=== PATIENT | female | born 1985 | race Caucasian/White ===

== ENCOUNTER 2017-06-14 12:22 | Emergency (ER) | payer OTHER, SELFPAY ==
[2017-06-14 12:23] VITALS: BP 126/76; PULSE 87; RESP 16; TEMP 36.4; O2SAT 100; BMI 24.4
--- NOTE | 2017-06-14 12:55 | US_ITS ---
STUDY: FIRST TRIMESTER OBSTETRICAL ULTRASOUND REASON FOR EXAM: Female, 32 years old. Bleeding. LMP: Otis 6 2018. TECHNIQUE: Transvaginal PRIOR ULTRASOUND: None. FINDINGS: There is no demonstrated intrauterine gestational sac. There is no demonstrated yolk sac. The placenta is non-visualized. There is no demonstrated embryo ( pole). The uterus measures 8.1 cm x 5.1 cm x 4.0 cm. There is no demonstrated uterine fibroid. The cervix is closed. The right ovary measures 2.2 cm x 2.3 cm x 1.3 cm. There is no right ovarian cyst. There is no visualized right adnexal mass or complex lesion. The left ovary measures 3.6 cm x 2.0 cm x 2.0 cm. There is a 1.9 cm x 1.4 cm x 1.5 cm complex cyst in the left ovary. This may represent an hemorrhagic corpus luteum cyst. There is no visualized left adnexal mass or complex lesion. There is no fluid in the cul de sac. US/Transvaginal w/Preg US IMPRESSION: No intrauterine gestational sac is seen. 1.9 cm x 1.4 cm x 1.5 cm septated cyst in the left ovary as described. Serial beta hCG correlation is recommended. Electronically Signed: Humble Patel MD at 14:47 EST Tel [phone], Service support ,
[2017-06-14 14:42] VITALS: BP 108/71; PULSE 89; RESP 16; O2SAT 99
[2017-06-14 15:53] LABS: hCG Titer Quant., Serum 21 mIU/mL (<9 non-preg)
[2017-06-14 16:10] VITALS: BP 111/74; PULSE 84; RESP 16; O2SAT 100
--- NOTE | 2017-06-14 16:31 | ED.VISSUMM ---
- ER Visit Summary Date of Service: 06/14/17 Chief Complaint: Vaginal bleeding with cramping pelvic pain that started this morning History of Present Illness: The patient is a 32 F Ab0 who presents with vaginal bleeding that started this morning. She states she is used 4 pads. She has no orthostatic symptoms. She has O+ blood. She states she is 5-6 weeks . She does complain of nausea without vomiting or diarrhea. She does complain of frequency without urgency, hematuria or dysuria. She does complain of low central back pain. She denies bruising easily. Physical Examination: Vital signs are unremarkable. HEENT exam is unremarkable. Heart is regular without murmur, gallop or rub. S1 and S2 are normal. Lungs are clear to auscultation with good movement of air bilaterally. Abdomen is remarkable for a superficial burn to her abdomen right lower quadrant and tenderness low pelvic region bilaterally. There is no umbilical, inguinal hernia. There is no inguinal lymphadenopathy. External genitalia is normal. Vaginal cervical mucosa appear normal. There is a partially 5 cc of old blood in the vaginal vault. Also appears closed. Bimanual exam reveals slightly enlarged uterus that is tender. There is no adnexal masses or tenderness appreciated. There is no cervical motion tenderness. The external offices closed. Test Results: Transvaginal exam was obtained which revealed an empty uterus. A serum quantitative hCG was obtained and is only 21. Emergency Department Course and Treatment: Since patient had a positive pricey test and is seen by gynecology repeat hCG was not obtained. Transvaginal ultrasound was obtained to evaluate viability of and to evaluate for/rule out ectopic . There is a septated left ovary noted. There is no products of conception noted in uterus. Because the ultrasound revealed an empty uterus a quantitative hCG was obtained. Dr. Ahumada was paged. Spoke with Mel Garcia her nurse practitioner. She would like a repeat hCG in 48 hours. Presume patient had a spontaneous complete AB Treatment Plan: Repeat quantitative hCG in 48 hours and follow up with Dr. Ahumada Disposition: Discharged to home Impression: First trimester vaginal bleeding suspect complete spontaneous AB This note was generated with Mobile [employer] software. It may contain incorrect words, spelling, and punctuation that were not noted in review of the chart prior to signing ED Disposition - Plan for ED Patient: Disposition: Home or Assisted Living Chief Complaint: Vag Bld, Preg Instructions: ED Miscarriage Poss Referrals: Armand Nunez MD [Primary Care Provider] - Micheline Ahumada MD [STAFF PHYSICIAN] - 3-5 Days Additional Instructions: You will need to go to the outpatient lab to have a repeat quantitative hCG on June 16
[2017-06-14 16:49] VITALS: BP 111/74; PULSE 84; RESP 16; O2SAT 100
== END 2017-06-14 16:50 | disposition home or self-care (01) ==
PROVIDERS: Emergency Provider Emergency Medicine; Family Provider Family Medicine; PCP Family Medicine
DX: O46.91 Antepartum hemorrhage, unspecified, first trimester (principal); Z3A.01 Less than 8 weeks gestation of pregnancy
CPT/HCPCS: 36415; 76817; 84702; 99282

== ENCOUNTER → 2017-06-16 12:48 | Outpatient (CLI) | payer OTHER, SELFPAY ==
[2017-06-16 14:19] LABS: hCG Titer Quant., Serum 8 mIU/mL (<9 non-preg)
== END ==
PROVIDERS: Family Provider Family Medicine; PCP Family Medicine; Visit Provider Obstetrics & Gynecology
DX: O46.91 Antepartum hemorrhage, unspecified, first trimester (principal); Z3A.00 Weeks of gestation of pregnancy not specified
CPT/HCPCS: 36415; 84702

== ENCOUNTER 2020-02-16 10:31 | Emergency (ER) | payer OTHER, SELFPAY ==
[2020-02-16 10:32] VITALS: BP 133/80; PULSE 75; RESP 18; TEMP 35.8; O2SAT 100; BMI 22.1
--- NOTE | 2020-02-16 11:29 | ED.VIS.EYE ---
History of Present Illness Chief Complaint: Eye Problem Informant: Patient Location: Right Eye Onset: Yesterday Context: Gradual Onset Timing: Continuous Associated Symptoms - Eyes: Pain, Photophobia, Redness Visual Changes: right: Blurred vision History of injury: No Visual correction: Glasses, Corrective contact lenses Narrative: Patient is a 35-year-old female presenting with 2 days of worsening pain in her right eye. She states she woke up yesterday to start having pain in her right eye. Throughout the day it started to get worse. Her coworkers noticed that her right pupil looked big. She has had worsening photophobia and she feels like her depth perception has been off. Tonight she flushed out her I took out her contacts with no improvement. She does not have a foreign body sensation in her eye. She took Advil with no relief of her symptoms. She was not really able to sleep last night and came in because the pain was worsening. She denies any tearing of her eye. She states it feels like an aching and tenderness behind her eye. She now has an associated headache. She feels that she cant really see out of her eye at this time. Patient states she has amblyopia of her left eye and is told that her right eye is her good eye. She follows with her solar photovoltaic electrician, Dr. Carlin and just had a normal evaluation 2 weeks ago. Prior similar symptoms: No Past Medical History - Allergies and Home Meds Allergies/Adverse Reactions: Allergies latex Allergy (Verified 02/16/20 10:35) Mucosal lesions tramadol Allergy (Verified 02/16/20 10:35) Itching Primary Care Physician: Parth Caro MD [STAFF PHYSICIAN] - Surgical History: noncontributory Lives: Spouse/ Significant Other Smoking Status: Never smoker Review of Systems General: Denies: Chills, Fever, Sweats Eyes: Reports: Blurred vision - right, - - photophobia. Denies: Visual changes - bilaterally, Diplopia ENT: Denies: Bilateral ear pain, Rhinorrhea, Sore throat Cardiovascular: Denies: Chest pain, Palpitations Respiratory: Denies: Dyspnea, Cough, Dyspnea on exertion Gastrointestinal: Denies: Abdominal pain, Nausea, Vomiting, Diarrhea, Melena, Hematochezia Genitourinary: Denies: Dysuria, Hematuria, Frequency Musculoskeletal: Denies: Back pain, Extremity Pain Skin: Denies: Rash, Wounds Neurological: Reports: Headache. Denies: Weakness, Numbness Physical Exam Visual Acuity: Uncorrected Eyelid: Normal inspection Right Conjunctiva/Sclera: Diffuse focal injection Left Conjunctiva/Sclera: Normal inspection Right Cornea: Normal inspection, No foreign body, Tetracaine instilled, Fluorescein dye uptake Left Cornea: Normal inspection Extraocular Motion: Normal exam, No nystagmus Right pupil size in mm: 5 Left pupil size in mm: 6 Anterior chamber: - - Difficult to evaluate as patient is not tolerating any light on her eye Right intraocular pressure: 21 Left intraocular pressure: 25 Vital Signs/Narrative: Vital Signs Temp Pulse Resp BP Pulse Ox 02/16/20 10:32 96.4 F L 75 18 133/80 H 100 Right pupil reactive but sluggish. Inital Vital Signs reviewed: Yes Diagnostic/Tx/Re-eval - Treatment and Re-Evaluation Tetracaine: both eyes Antibiotic: right eye - Medical Decision Making Patient is evaluated for worsening right eye pain. She has associated vision changes. On initial exam patient is having significant pain that does not seem to really be improved with tetracaine. Her pressures are normal however. Patient is a contact lens user. On initial slit-lamp exam I do not see any fluorescein dye uptake however patient was tolerated very poorly secondary to photophobia. Given her significant symptoms with lack of an obvious source I did talk to her solar photovoltaic electrician, Dr. Hargrove, who suspects is a contact lens wearer she does have an abrasion somewhere. He recommends putting her on ciprofloxacin drops every other hour for the next day and he will see her in the office tomorrow. He also recommends alternating ibuprofen and Tylenol for pain. She her symptoms significantly worsen the office today and he will arrange further care. Given that she is having significant symptoms she is given a dose of IV morphine and she now states her pain is worse when she looks down and to the right so I will obtain a CT of the face to rule out any preseptal cellulitis or other acute process of the extraocular eye muscles. Patient then goes on to state that she now really feels that there is a foreign body in her eye and her looks underneath her eyelid and thinks he sees something. I go back in and reanesthetize her eye and flip her eyelid. I do not see any foreign body however at this time I will repeat fluorescein slit lamp exam. Patient tolerates it better and now there does appear to be slight corneal abrasion over her central pupil. Patient does have improvement of her symptoms with the tetracaine now which is inconsistent and would like to cancel the CT of her eye. I think this is reasonable since there now appears to be a source of the pain. Patient will still be discharged home with NSAIDs and a short course of [place] for pain control as well as ophthalmic antibiotics. Patient is counseled on signs and symptoms requiring return to the emergency room. Patient verbalizes agreement and understand this plan. Patient discharged home in stable and improved condition. ED Disposition - Plan for ED Patient: Disposition: Home or Assisted Living Diagnosis: Acute right eye pain, Right corneal abrasion Instructions: ED Corneal Abrasion Prescriptions: Ibuprofen [Motrin] 600 mg PO Q6H PRN PRN #20 tab PRN Reason: Pain Score 1-10/10 Transmission Status: Received by YUNIOR GEORGE RD Hydrocodone Bitart/Apap 5-325 [[place] 5MG-325MG] 1 tab PO Q4H PRN PRN 2 Days #8 tab PRN Reason: Pain Transmission Status: Received by YUNIOR GEORGE RD Referrals: Parth Caro MD [STAFF PHYSICIAN] - Additional Instructions: Call eye doctor tomorrow to arrange follow-up for the same day. If you have significantly worsening symptoms tonight or later today please call the office and asked to speak to the eye doctor at [facility] you are seen in the ER today. Apply the antibiotic eyedrop 1 to 2 drops every other hour today to the right eye. Do not put contact lenses back in your eye.
--- NOTE | 2020-02-16 11:33 | ED.RN ---
unable to do visual acuity as patient is unable to keep eyes open due to pain.
[2020-02-16] MEDS: Ketorolac 15 MG/ML Vial IV (12:09)
[2020-02-16] MEDS: Morphine 4 MG/ML Syringe IV (12:10)
[2020-02-16 13:00] VITALS: BP 114/62; PULSE 80; RESP 18; O2SAT 99
[2020-02-16 13:32] LABS: Internal QC Validated? YES +Cl - CLEAR BKGD; Pregnancy, Urine Negative Negative
[2020-02-16] MEDS: Tetracaine 0.5% Ophthalmic Bottle OPHTHALMIC (13:45)
[2020-02-16] MEDS: Ciprofloxacin 0.3% 2.5ml Bottle 2 DRP RIGHT EYE (13:45)
[2020-02-16] MEDS: HYDROcodone Bitartrate/Apap 5/325 Tablet PO (14:02)
== END 2020-02-16 14:08 | disposition home or self-care (01) ==
PROVIDERS: Emergency Provider Emergency Medicine; PCP Family Medicine
DX: S05.01XA Injury of conjunctiva and corneal abrasion without foreign body, right eye, initial encounter (principal); X58.XXXA Exposure to other specified factors, initial encounter; Y93.89 Activity, other specified; Y92.89 Other specified places as the place of occurrence of the external cause; Y99.8 Other external cause status
CPT/HCPCS: 81025; 96374; 96375; 99283; A4216

== ENCOUNTER → 2020-07-16 08:56 | Outpatient (CLI) | payer OTHER, SELFPAY ==
--- NOTE | 2020-07-16 18:17 | PCM.TILTTABL ---
- Staff Staff: Isha Garcia - Summary Pre Test Resting HR: 72 Pre Test Resting BP: 112/80 Minimum Test HR: 52 Maximum Test HR: 151 Minimum Test BP: 0/0 Maximum Test BP: 120/60 Physician Tilt Table Report - Patient's Physicians Primary Care Physician: Armand Nunez Indications/Diagnosis: Recurrent syncope. 35-year-old lady with a history of palpitations and presyncopal episodes with racing heart and lightheadedness associated with passing out spells when she changes position from sitting to standing position. Procedure Comments: The patient was brought to the noninvasive lab in the postabsorptive nonsedated state. The initial EKG demonstrated normal sinus rhythm with a rate of 70 bpm blood pressure was 112/80 mmHg. The patient was then positioned in the 70 degree head upright tilt position for 20 minutes. Continuous EKG monitoring and heart rate was performed. Blood pressures were also recorded. Patient had symptoms of numbness and tingling but no significant abnormalities were noted. The patient was then placed back in the recumbent position and administered 0.4 mg of sublingual nitroglycerin. Head upright tilt position was then assumed. The patient was then noted to increase her heart rate to approximately 151 bpm which appeared consistent with sinus tachycardia. The resting blood pressure at that time was noted to be 119/79 mmHg. The patient subsequently after 3 minutes in the upright tilt position started to become bradycardic with a pulse going down to approximately 45 bpm and consistent with sinus bradycardia. Patient became clammy and unresponsive with mild seizure-like activity. The patient was then placed back in the recumbent position with improvement in her heart rate back to her baseline in the mid 60s. The patient recovered well. Summary: The above is suggestive of a mixed picture with likely postural orthostatic tachycardic syndrome triggering off a vagal response.
[2020-07-16 18:23] VITALS: BP 0/0; BP 112/80; BP 120/60
== END ==
PROVIDERS: PCP Family Medicine; Referring Provider Internal Medicine Cardiovascular Disease; Visit Provider Internal Medicine Cardiovascular Disease
DX: I95.1 Orthostatic hypotension (principal)
CPT/HCPCS: 93660; J7040; A4216

== ENCOUNTER 2021-05-17 15:45 | Outpatient (CLI) | payer OTHER, SELFPAY ==
[2021-05-17 16:49] LABS: NATERA MAILED SPECIMEN
== END 2021-05-17 23:59 | disposition short-term general hospital (02) ==
LOC: PAVLAB 15:46
PROVIDERS: PCP Family Medicine; Referring Provider Obstetrics & Gynecology; Visit Provider Obstetrics & Gynecology
DX: Z80.3 Family history of malignant neoplasm of breast (principal)
CPT/HCPCS: 36415

== ENCOUNTER 2021-05-21 09:02 | Outpatient (CLI) | payer OTHER, SELFPAY ==
--- NOTE | 2021-05-21 09:05 | US_ITS ---
STUDY: ULTRASOUND BREAST - LEFT REASON FOR EXAM: Female, 36 years old. Pain in the left breast. Bilateral breast implants. TECHNIQUE: Axial and longitudinal images of the LEFT breast were performed with a high resolution ultrasound transducer. # OF IMAGES: 27 COMPARISON: Comparison is made with prior mammogram done earlier in the day. FINDINGS: LEFT Breast: The lateral half of the left breast was examined by ultrasound. No sonographic abnormality is seen. There is evidence of an underlying breast implant. US/Breast Limited Unilateral IMPRESSION: No sonographic abnormality is seen. ASSESSMENT CATEGORY: BIRADS Category 2: Benign. A letter regarding these results will be sent to the patient by the facility within 30 days. Electronically Signed: Humble Patel MD at 13:35 EST , Service support ,
--- NOTE | 2021-05-21 09:09 | BI_ITS ---
MAMMOGRAPHY - BILATERAL DIAGNOSTIC REASON FOR EXAM: Female, 36 years old. Left lateral breast discomfort for 2 months. 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 PERTINENT HISTORY: Aunt with breast cancer. TECHNIQUE: Digital bilateral breast michaela (3D mammographic acquisition) in the CC and MLO projections. 2-D mediolateral oblique (MLO) and craniocaudad (CC) views of both breasts were obtained. CAD: Full Field Digital Mammography with Computer Added Detection was performed. COMPARISON: Comparison is made with prior outside examination of 07/04/2011. FINDINGS: Breast Composition: The breasts are heterogeneously dense, which may obscure small masses. There are no dominant masses or suspicious calcifications. Since prior study, the patient underwent bilateral breast implants. No other significant abnormalities are identified. BI/DIAG MAMM W/CAD, BILAT IMPRESSION: Negative diagnostic mammogram. With the patient''s history of a palpable lump in the left lateral breast, correlation with ultrasound is recommended. ASSESSMENT CATEGORY: BIRADS Category 0: Incomplete. Need additional imaging evaluation. A letter regarding these results will be sent to the patient by the facility within 30 days. Approximately 10% of breast cancers are not detected by mammography. A normal mammogram should not delay biopsy of a clinically suspicious abnormality. Electronically Signed: Humble Patel MD at 11:38 EST , Service support ,
== END 2021-05-21 23:59 | disposition short-term general hospital (02) ==
LOC: OPBI 09:03
PROVIDERS: PCP Family Medicine; Referring Provider Obstetrics & Gynecology; Visit Provider Obstetrics & Gynecology
DX: N64.4 Mastodynia (principal); Z98.82 Breast implant status
CPT/HCPCS: 76642; 77062; 77066; G0279

== ENCOUNTER 2021-09-25 19:43 | Emergency (ER) | payer OTHER, SELFPAY ==
[2021-09-25 19:45] VITALS: BP 128/75; PULSE 101; RESP 16; TEMP 36.2; O2SAT 99; BMI 21.7
--- NOTE | 2021-09-25 20:25 | EDS_ITS ---
HPI HPI - GI History of Present Illness Chief Complaint: Abd Pain Narrative Narrative: 36-year-old female presenting with epigastric pain. She states been ongoing for about 3 days. It was worse today. Eating does not seem to make it worse or better. Patient states has been eating a bland diet. She has nausea without vomiting. No fever or chills. Patient has no diarrhea or constipation. Denies urinary complaints. Patient states that her friend who is a nurse practitioner gave her some Pepcid earlier which did not help. Patient has taken nothing for pain prior to arrival. Patient is not a drinker or smoker. [facility] Medical History Ganglion cyst Genetic testing Hypothyroid Seasonal depression Home Medications levothyroxine 50 mcg PO DAILY 11/28/13 [History Last Taken 08/28/15 08:00] multivitamin [Daily Multiple] 1 tab PO DAILY 08/27/15 [History Last Taken Unknown] ibuprofen 600 mg PO Q6H PRN PRN #20 tab 02/16/20 [Rx Last Taken Unknown] bupropion HCl 300 mg 24 hr tablet, extended release 300 mg PO QAM 05/17/21 [History Last Taken Unknown] alprazolam 1 mg PO TID PRN 09/25/21 [History Last Taken Unknown] omeprazole 20 mg PO DAILY #30 tab 09/25/21 [Rx Last Taken Unknown] ondansetron 4 mg PO Q8H PRN #14 tab 09/25/21 [Rx Last Taken Unknown] phentermine-topiramate [Qsymia] 1 cap PO DAILY 09/25/21 [History Last Taken Unknown] rizatriptan 10 mg PO X1 PRN 09/25/21 [History Last Taken Unknown] sucralfate [Carafate] 1 g PO BID PRN #500 ml 09/25/21 [Rx Last Taken Unknown] Allergy/AdvReac Type Severity Reaction Status Date / Time latex Allergy Mucosal Verified 09/25/21 19:46 lesions tramadol Allergy Itching Verified 09/25/21 19:46 Family History (Updated 05/17/21 @ 15:47 by Lacie Trejo) Unknown Breast cancer, Onset Age: 48 Aunt Breast cancer Grandmother Ovarian cancer Surgical History delivery delivered H/O hernia repair S/P ACL surgery Status post breast lumpectomy Social History (Updated 05/17/21 @ 15:48 by Lacie Trejo) Smoking Status: Never smoker alcohol intake: never substance use type: does not use caffeine: Yes seatbelt use: always do you feel safe at home: Yes additional social history: [employer] ROS ROS ED Constitutional Constitutional ED: Denies chills or fever(s) ENT ENT ED: Denies rhinorrhea or sore throat Cardiovascular Cardiovascular: Denies chest pain or palpitations Respiratory/Chest Respiratory/Chest: Denies cough or dyspnea Gastrointestinal Gastrointestinal: Reports abdominal pain and nausea; Denies constipation, diarrhea or vomiting Genitourinary Genitourinary ED: Denies dysuria or hematuria Musculoskeletal Musculoskeletal: Denies arthralgias or myalgias Integumentary Denies rash Neurologic Neurologic: Denies headache(s) or paresthesias Psychiatric Psychiatric: Denies anxiety or depression Endocrine Endocrinology: Denies polydipsia or polyuria EXAM Physical Exam Const Vital Signs: 09/25/21 19:45 Temperature 97.2 F L Temperature Source Temporal Pulse Rate 101 H Respiratory Rate 16 Blood Pressure 128/75 H Blood Pressure Mean 92 Pulse Ox 99 Oxygen Delivery Method Room Air Positive well nourished General Appearance ED: NAD; Negative for pallor HEENT normocephalic and atraumatic Eyes PERRL and EOMs intact bilaterally General Eye ED: Negative for pale conjunctiva or scleral icterus Neck no lymphadenopathy and supple Resp normal respiratory effort and clear to auscultation bilaterally Cardio regular rate and regular rhythm GI Palpation: soft and tender epigastric Neuro CN's II-XII intact bilaterally and moves all extremities Sensorium / Orientation: alert, oriented to person, oriented to place and oriented to time Psych mental status grossly normal Skin General Skin Exam: Negative for jaundice or pallor Lesions: no lesions Rashes: no rashes MDM MDM MDM Narrative Medical decision making narrative: Given morphine and Zofran for pain and nausea respectively. I obtained lab work and gave her IV fluids. CBC is in the CMP are unremarkable. Lipase normal. Urinalysis negative for infection. Patient states he feels somewhat better after being treated but still having some epigastric pain. She was given a GI cocktail with some relief. I suspect this is gastritis versus gastric ulcer. I do not believe she needs a CAT scan at this time. Patient will be started on a PPI, Carafate, Zofran. She states she can follow-up with her primary care physician. Patient given return precautions. Impression: 1. Nausea 2. Epigastric pain Lab Data Attestation: I reviewed the patient's lab results. Labs: Laboratory Results - last 24 hr 09/25/21 09/25/21 09/25/21 20:35 20:35 22:31 WBC 8.0 RBC 3.93 L Hgb 12.8 Hct 36.8 L MCV 93.6 MCH 32.6 H MCHC 34.8 RDW Std Deviation 42.8 RDW Coeff of Alessandra 12.2 Plt Count 264 MPV 10.4 Immature Gran % (Auto) 0.400 Neut % (Auto) 69.8 Lymph % (Auto) 23.7 [place] % (Auto) 5.6 Eos % (Auto) 0.4 Baso % (Auto) 0.1 Absolute Neuts (auto) 5.6 Absolute Lymphs (auto) 1.89 Nucleated RBC % 0 Sodium 138 Potassium 3.3 L Chloride 107 Carbon Dioxide 25.0 Anion Gap 6 BUN 12 Creatinine 0.87 Estim Creat Clear Calc 103.41 Est GFR (MDRD) Af Amer 95 Est GFR (MDRD) Non-Af 78 BUN/Creatinine Ratio 13.8 Glucose 93 Calcium 8.8 Total Bilirubin 0.80 AST 7 L ALT 14 Alkaline Phosphatase 34 L Total Protein 6.9 Albumin 3.9 Globulin 3.0 Albumin/Globulin Ratio 1.3 Lipase 56 L Urine Color Yellow Urine Clarity Sl. Cloudy Urine pH 7.0 Ur Specific [place] 1.005 Urine Protein Negative Urine Glucose (UA) Normal Urine Ketones 5 H Urine Occult Blood Negative Urine Nitrite Negative Urine Bilirubin Negative Urine Urobilinogen Normal Ur Leukocyte Esterase Negative Urine RBC 0 SEEN Urine WBC 0 SEEN Ur Squamous Epith Cells 0-5 SEEN Amorphous Sediment 1+ PHOS Urine Bacteria 0 SEEN Urine Mucus 0 SEEN Discharge Plan Triage Chief Complaint: Abd Pain ED Provider: Tima Moreno Dx/Rx/DC Orders Instructions: ED PEPTIC ULCER vs GASTRITIS Prescriptions: New omeprazole 20 mg tablet,disintegrat, delay rel 20 mg PO DAILY Qty: 30 RF: 0 sucralfate [Carafate] 100 mg/mL suspension 1 g PO BID PRN (Reason: epigastric pain) Qty: 500 RF: 0 ondansetron 4 mg tablet,disintegrating 4 mg PO Q8H PRN (Reason: nausea and vomiting) Qty: 14 RF: 0 No Action bupropion HCl [Wellbutrin XL] 300 mg tablet extended release 24 hr 300 mg PO QAM RF: 0 levothyroxine 100 MCG tablet 50 mcg PO DAILY RF: 0 multivitamin [Daily Multiple] 1 EACH tablet 1 tab PO DAILY RF: 0 ibuprofen 600 MG tablet 600 mg PO Q6H PRN PRN (Reason: Pain Score 1-10/10) Qty: 20 RF: 0 alprazolam 1 mg tablet 1 mg PO TID PRN (Reason: Anxiety) RF: 0 rizatriptan 10 mg tablet,disintegrating 10 mg PO X1 PRN (Reason: Migraine Headache) RF: 0 Qsymia 7.5-46 mg capsule, ER multiphase 24 hr 1 cap PO DAILY RF: 0 Primary Care Provider: Armand Nunez Referrals: Armand Nunez MD [Primary Care Provider] - Disposition Disposition: Home, Self Care Discharge Date/Time: 09/25/21 23:48
[2021-09-25 20:52] LABS: Absolute Lymphocyte Count 1.89 X10^3/uL (0.83-4.51); Absolute Neutrophil Count 5.6 X10^3/uL (2.0-7.7); Basophil# 0.01 X10^3/uL; Basophil% 0.1 % (0-1); Eosinophil# 0.03 X10^3/uL; Eosinophils% 0.4 % (0-5); Hematocrit 36.8 % (37-47); Hemoglobin 12.8 g/dL (12.0-15.0); Lymphocyte # 1.89 X10^3/ul (0.83-4.51); Lymphocyte % 23.7 % (19-41); Mean Corp Hgb Conc 34.8 g/dL (32-36); Mean Corpuscular Hgb 32.6 pg (27.0-32.0); Mean Corpuscular Volume 93.6 fL (81-99); Mean Platelet Vol. 10.4 fl (6.2-12.0); Monocyte# 0.45 X10^3/uL; Monocyte% 5.6 % (0-10); NRBC Flagged by Analyzer 0 % (0-5); Neutrophil # 5.58 X10^3/uL (2.7-7.7); Neutrophil % 69.8 % (47-70); Platelet Count 264 K/mm3 (150-450); RBC Distribution Width CV 12.2 % (11.6-14.6); RBC Distribution Width SD 42.8 fl (35.1-43.9); Red Blood Count 3.93 M/mm3 (4.2-5.4)
[2021-09-25 21:07] LABS: ALB/GLOB Ratio 1.3 RATIO (0.9-2.4); AST(SGOT) 7 U/L (15-37); Alanine Aminotransfer ALT/SGPT 14 U/L (13-56); Albumin, Serum 3.9 g/dL (3.2-5.0); Alkaline Phosphatase 34 U/L (45-117); Anion Gap 6 (5-15); BUN 12 mg/dL (7-18); BUN/Creat Ratio 13.8 RATIO (10-20); Calcium,Total 8.8 mg/dL (8.5-10.1); Chloride 107 mmol/L (98-107); Creatinine, Serum 0.87 mg/dL (0.55-1.02); EST Glomerular Filtration Rate 78 mL/min (>60); Est Glom Filt Rate - Afr Amer 95 mL/min (>60); Estimated Creatinine Clearance 103.41 ml/min; Glucose 93 mg/dL (74-106); Lipase 56 U/L (73-393); Potassium 3.3 mmol/L (3.5-5.1); Protein, Total 6.9 g/dL (6.4-8.2); Sodium Level 138 mmol/L (136-145)
[2021-09-25] MEDS: 0.9% Normal Saline 1,000 ML 1000 ML IV (21:26)
[2021-09-25] MEDS: Ondansetron 4 MG/2 ML Vial IV (21:26)
[2021-09-25] MEDS: Morphine 4 MG/ML Syringe IV (21:27)
[2021-09-25 22:40] LABS: Bacteria 0 SEEN /hpf (None Seen); Mucous, Urine 0 SEEN /hpf (<or=2+); Red Blood Cells-Urine 0 SEEN /hpf (0-5); White Blood Cells 0 SEEN /hpf (0-5)
[2021-09-25 22:49] LABS: Color, Urine Yellow (Yellow); Glucose, Dipstick Normal (Normal); Ketone-Dipstick 5 mg/dl (Negative); Leukocyte Esterase-Dipstick Negative /ul (Negative); Nitrite-Dipstick Negative (Negative); Occult Blood-Urine Negative /ul (Negative); Protein-Dipstick Negative (Negative); Specific Gravity, Urine 1.005 (1.002-1.030); Urine Bilirubin Dipstick Negative (Negative); Urine Clarity Sl. Cloudy (Clear); Urine Urobilinogen Normal (Normal)
[2021-09-25] MEDS: Mag Hydrox/Al Hydrox/Simeth 30 ML UDC PO (23:01)
[2021-09-25 23:05] LABS: Amorphous Sediment 1+ PHOS; Squamous Epithelial Cells - UA 0-5 SEEN /hpf (5-10)
== END 2021-09-25 23:48 | disposition home or self-care (01) ==
PROVIDERS: Emergency Provider Student in an Organized Health Care Education/Training Program; PCP Family Medicine; Visit Provider Student in an Organized Health Care Education/Training Program
DX: R10.13 Epigastric pain (principal); R11.0 Nausea; E03.9 Hypothyroidism, unspecified
CPT/HCPCS: 80053; 81001; 83690; 85025; 99283; J7030; J2405

== ENCOUNTER → 2021-10-18 | Outpatient (CLI) | payer OTHER, SELFPAY ==
[2021-10-21 14:55] LABS: HPV APTIMA, High Risk Negative (Negative)
== END | disposition home or self-care (01) ==
LOC: LABSPEC 10-19 08:37
PROVIDERS: PCP Family Medicine; Referring Provider Obstetrics & Gynecology; Visit Provider Obstetrics & Gynecology
DX: Z12.4 Encounter for screening for malignant neoplasm of cervix (principal)
CPT/HCPCS: 87624; 88175; G0145

== ENCOUNTER → 2021-10-20 | Outpatient (CLI) | payer OTHER, SELFPAY ==
[2021-10-21 12:38] LABS: H. Pylori Antibody (IgG) 0.19 (0.00-0.79)
== END | disposition home or self-care (01) ==
PROVIDERS: PCP Family Medicine; Visit Provider Obstetrics & Gynecology
DX: R10.9 Unspecified abdominal pain (principal)
CPT/HCPCS: 36415; 86677

== ENCOUNTER 2021-11-22 08:30 | Day surgery (SDC) | payer OTHER, SELFPAY ==
[2021-11-22] VITALS (7 sets, daily range): BP systolic 107–120; BP diastolic 59–76; PULSE 69–85; RESP 16–18; TEMP 36.4–36.8; O2SAT 98–100; BMI 21.8
[2021-11-22] MEDS: Lactated Ringers 1,000 ML 30 ML IV (09:15)
--- NOTE | 2021-11-22 09:30 | EGD_PTH ---
PATIENT: JILLIAN GUADARRAMA LOC: EN U#:[id number] AGE/SX: 36/F ROOM: RE11/22/[address]: Dr. Tray Langford DO : 1985 BED: DIS: 11/22/2021 SPEC #: [id number] RECD: 11/22/21 13:28 STATUS: JAMES SCOOTER #: [id number] JUAN CARLOS: 11/22/21 09:[address]: Tray Langford DEPT: SURGICAL PATHOLOGY RECD BY: Florence Zuñiga ENTERED: 11/22/21 13:58 SP TYPE: EGD BIOPSY LESLIE DR: Dr. Armand Nunez MD Tissues: A - Gastric mucous membrane B - Gastric mucous membrane C - Esophagus, NOS Procedures: Special Stain Group II Surgery Specimen Level IV Alcian Blue/PAS (control) HEADER OPERATION: EGD with biopsies (MAC) PRE-OP DIAGNOSIS: Epigastric pain TISSUE SUBMITTED: A ? Gastric ulcer biopsy, B ? Gastric body biopsy, C ? Distal esophagus biopsy MICROSCOPIC DIAGNOSIS A. Gastric ulcer, biopsy: Mild gastritis. See microscopic description. B. Gastric body, biopsy: Mild gastritis. See microscopic description and comment. C. Distal esophagus, biopsy: Fragments of gastroesophageal mucosa with chronic inflammation. Intestinal metaplasia (goblet cell metaplasia) not identified. See comment. SJ:cristine 11/23/2021 COMMENT B. The results of immunohistochemistry for Helicobacter pylori will be reported separately ([id number]). C. Alcian blue/PAS stain with matched control is used in the evaluation of the specimen. The specimen predominantly consists of gastric mucosa. MICROSCOPIC DESCRIPTION Slides are reviewed. A & B. The specimen shows fragments of gastric mucosa with chronic inflammatory cell infiltrates in the lamina propria consisting of lymphocytes and plasma cells, consistent with mild chronic gastritis. GROSS DESCRIPTION A - Received in fixative is one container labeled with the patient's name and designated gastric ulcer biopsy. The specimen consists of two irregular fragments of light núñez soft tissue that in aggregate measure 0.6 x 0.2 x 0.1 cm. The specimen is totally submitted in one cassette. B - Received in fixative is one container labeled with the patient's name and designated gastric body biopsy. The specimen consists of one irregular fragment of light núñez soft tissue that measures 0.3 x 0.3 x 0.1 cm. The specimen is totally submitted in one cassette. C - Received in fixative is one container labeled with the patient's name and designated distal esophagus biopsy. The specimen consists of two irregular fragments of light núñez soft tissue that in aggregate measure 0.6 x 0.3 x 0.1 cm. The specimen is totally submitted in one cassette. / SJ:rg 11/22/2021 TC:3 CPT: 29346 x3, 57573
--- NOTE | 2021-11-22 09:30 | IMM_PTH ---
PATIENT: JILLIAN GUADARRAMA LOC: EN U#:[id number] AGE/SX: 36/F ROOM: RE11/22/[address]: Dr. Tray Langford DO : 1985 BED: DIS: 11/22/2021 SPEC #: [id number] RECD: 11/22/21 14:33 STATUS: JAMES REQ #: [id number] JUAN CARLOS: 11/22/21 09:[address]: Tray Langford DEPT: IMMUNOHISTOCHEMISTRY RECD BY: Marva Sun ENTERED: 11/22/21 14:34 SP TYPE: IMMUNO OTHR DR: Dr. Armand Nunez MD Tissues: B - Stomach, NOS Procedures: H Pylori (initial) PHYSICIAN & INSTITUTION [place] [id number] SPECIMEN INFORMATION: Tissue Source: B ? Gastric body biopsy Clinical Info: Epigastric pain Specimen Number: [id number] CPT code: 47798 METHODOLOGY: Deparaffinized sections of prefer/formalin-fixed tissue or PAP/DQ stained slides are incubated with monoclonal/polyclonal antibodies/oligonucleotide probes. Localization is made via biotin free immunoperoxidase method. Appropriate controls are performed and reacted as expected. Results on target cell population are indicated in the following table: RESULTS: ANTIBODY / CLONE RESULT Block B H Pylori (polyclonal) negative These tests were developed and their performance characteristics determined by [facility]. They may not have been cleared or approved by the U.S. Food and Drug Administration. The FDA has determined that such clearance or approval is not necessary. The above immunohistochemical/dualISH markers are ordered and reviewed by the Pathologist. INTERPRETATION: B. Gastric body, biopsy: Negative for Helicobacter pylori organisms. SJ:cristine 11/23/2021
[2021-11-22 09:49] LABS: Internal QC Validated? YES +Cl - CLEAR BKGD; Pregnancy, Serum, hCG Quali. NEGATIVE Negative
--- NOTE | 2021-11-22 09:58 | HP.PCM_ITS ---
History and Physical Date of Admission: 11/22/21 RENETTA GUADARRAMA, is a 36 F who presents to the office today for?Initial consult. Renetta established with this clinic 10.21.21 following [facility] ED presentation for epigastric pain, nausea and changes in swallowing that started that morning and became progressively worse. She presented 09.25.21 with worsening epigastric pain for three days. She was given a GI cocktail and discharged with PPI, Carafate and Zofran for suspected gastritis versus gastric ulcer. No imaging performed. Afterward she began having abdominal distention; manipulation was helpful. Eating helps symptoms. Stools are normally Q5D with stools that are normal/hard consistency. No alcohol, marijuana or pop intake. Reports that she has had increased stress lately. Feels she manages her stress well and this has been ongoing for many. History of bowel obstruction 2007; s/p decompression and laxatives. No surgery correction. No cause identified. History of bowel obstruction Hernia repair R inguinal which continues to be constant achy pain. Exam Const General: cooperative and comfortable Nutritional Appearance: average body habitus and well nourished HENMT Head: normal to inspection Ears: hearing grossly normal bilaterally Nose: external nose normal Face and sinus: normal facial exam Mouth: oral mucosae normal Throat: posterior oropharynx normal Eyes General: appearance normal, both eyes and all related structures Neck Neck: normal visual inspection Chest Chest palpation & inspection: normal inspection of the chest and normal palpation of entire chest wall Resp Effort & Inspection: normal respiratory effort Auscultation: Bilateral: Clear to Auscultation Cardio Palpation: normal PMI Rate: regular rate Rhythm: regular rhythm GI Inspection: normal to inspection Auscultation: normal bowel sounds Percussion: normal to percussion Palpation: no hepatosplenomegaly Skin General: no rashes or lesions noted Neuro General: patient alert Extrem General: normal to inspection Psych Affect: normal affect Quality Reporting Tobacco Screening ([facility]) Smoking Status: Never smoker Assessment and Plan Assessment and Plan (1) Epigastric pain: ?Status:?Acute ?Plan: Epigastric pain radiating into the chest could be consistent with atypical reflux disease.? She did not have any imaging to see if she has any abnormal pathology such as a hiatal hernia which could be contributing to her symptoms.? Also different diagnosis would be eosinophilic reaction in her esophagus along with pill induced esophagitis as etiology of her symptoms.? She is improving with PPI therapy twice daily and Carafate therapy so we will continue those until we are able to evaluate the upper GI tract completely with an upper endoscopy. (2) Constipation: ?Status:?Acute ?Plan: She was not as concerned regarding her constipation because it is a chronic thing.? I think once we evaluate her upper GI tract we should definitely evaluate her for chronic idiopathic constipation versus slow transit constipation versus pelvic floor dysfunction with imaging studies such as a sits marker or empiric therapy. ? ? ? Medications: Refilled sucralfate (Carafate) 1 g (10 mL) PO BID PRN 500 mL 1RF epigas tric pain ? ? omeprazole 20 mg? PO DAILY 30 tabs 0RF ? ? I have re-examined the patient. There are no clinical changes since date of exam.
--- NOTE | 2021-11-22 10:22 | OP.EGD_ITS ---
Patient Name: Renetta Sapp Procedure Date: 11/22/2021 10:00 AM Date of : 1985 Age: 36 Procedure: Upper GI endoscopy Indications: Epigastric abdominal pain Providers: Tray Langford DO Medicines: Monitored Anesthesia Care Patient Profile: This is a 36 year old female. Refer to note in patient chart for documentation of history and physical. Patient has symptoms of acute abdominal cramping and acute epigastric abdominal pain. Complications: No immediate complications. Procedure: Pre-Anesthesia Assessment: - Prior to the procedure, a History and Physical was performed, and patient medications and allergies were reviewed. The risks and benefits of the procedure and the sedation options and risks were discussed with the patient. All questions were answered and informed consent was obtained. Patient identification and proposed procedure were verified by the physician in the pre-procedure area. Mental Status Examination: alert and oriented. Airway Examination: normal oropharyngeal airway and neck mobility. Respiratory Examination: clear to auscultation. CV Examination: normal. Prophylactic Antibiotics: The patient does not require prophylactic antibiotics. Prior Anticoagulants: The patient has taken no previous anticoagulant or antiplatelet agents. After reviewing the risks and benefits, the patient was deemed in satisfactory condition to undergo the procedure. The anesthesia plan was to use moderate sedation / analgesia (conscious sedation). Immediately prior to administration of medications, the patient was re-assessed for adequacy to receive sedatives. The heart rate, respiratory rate, oxygen saturations, blood pressure, adequacy of pulmonary ventilation, and response to care were monitored throughout the procedure. The physical status of the patient was re-assessed after the procedure. After obtaining informed consent, the endoscope was passed under direct vision. Throughout the procedure, the patient's blood pressure, pulse, and oxygen saturations were monitored continuously. The gastroscope was introduced through the mouth, and advanced to the second part of duodenum. The upper GI endoscopy was accomplished without difficulty. The patient tolerated the procedure well. Moderate Sedation: Moderate (conscious) sedation was personally administered by an anesthesia professional. The following parameters were monitored: oxygen saturation, heart rate, blood pressure, respiratory rate, EKG, adequacy of pulmonary ventilation, and response to care. Scope In: 10:10:10 AM Scope Out: 10:16:03 AM Total Procedure Duration Time 0 hours 5 minutes 53 seconds Findings: LA Grade A (one or more mucosal breaks less than 5 mm, not extending between tops of 2 mucosal folds) esophagitis with no bleeding was found 36 to 38 cm from the incisors. Biopsies were taken with a cold forceps for histology. Verification of patient identification for the specimen was done. Estimated blood loss was minimal. Patchy mild inflammation characterized by erythema was found in the gastric body. Biopsies were taken with a cold forceps for histology. Verification of patient identification for the specimen was done. Estimated blood loss was minimal. One non-bleeding cratered gastric ulcer with no stigmata of bleeding was found at the incisura. The lesion was 6 mm in largest dimension. Biopsies were taken with a cold forceps for histology. Verification of patient identification for the specimen was done. Estimated blood loss was minimal. The second portion of the duodenum was normal. Impression: - LA Grade A reflux esophagitis. Biopsied. - Gastritis. Biopsied. - Non-bleeding gastric ulcer with no stigmata of bleeding. Biopsied. - Normal second portion of the duodenum. Recommendation: - Discharge patient to home. - Resume previous diet. - Continue present medications. - Await pathology results. Procedure Code(s): --- Professional --- 46454, Esophagogastroduodenoscopy, flexible, transoral; with biopsy, single or multiple CPT copyright 2017 [employer]. All rights reserved. The codes documented in this report are preliminary and upon manufacturing test technician review may be revised to meet current compliance requirements. Tray Langford DO 11/22/2021 10:21:38 AM This report has been signed electronically. Number of Addenda: 1 Note Initiated On: 11/22/2021 10:00 AM Addendum Number: 1 Addendum Date: 02/02/2022 6:09:15 AM MAC was used as sedation for this procedure. Tray Langford DO 02/02/2022 6:09:22 AM This report has been signed electronically.
--- NOTE | 2021-11-22 10:22 | OP.CCLET_ITS ---
02/02/2022 Armand Nunez [address] [place] [address] Re : Upper GI endoscopy procedure for Renetta Sapp Dear Dr. Nunez This procedure was performed on Monday, November 22, 2021. My impressions and recommendations are as follows: Impressions : - LA Grade A reflux esophagitis. Biopsied. - Gastritis. Biopsied. - Non-bleeding gastric ulcer with no stigmata of bleeding. Biopsied. - Normal second portion of the duodenum. Recommendations : - Discharge patient to home. - Resume previous diet. - Continue present medications. - Await pathology results. My findings are described in the full procedure note, which is enclosed. If I can be of further assistance, please feel free to contact me at . Sincerely, Tray Langford, 11/22/2021 10:21:38 AM This report has been signed electronically.
== END 2021-11-22 11:21 | disposition home or self-care (01) ==
LOC: EN 08:32 → AC 08:43
PROVIDERS: Anesthesiology; PCP Family Medicine; Referring Provider Family Medicine; Visit Provider Internal Medicine Gastroenterology
PROC: 0DJ08ZZ Inspection of Upper Intestinal Tract, Via Natural or Artificial Opening Endoscopic (ICD-10-PCS; CPT 43235; principal; 2021-11-22 09:25)
DX: K21.00 Gastro-esophageal reflux disease with esophagitis, without bleeding (principal); K29.50 Unspecified chronic gastritis without bleeding; K31.89 Other diseases of stomach and duodenum; K25.9 Gastric ulcer, unspecified as acute or chronic, without hemorrhage or perforation; F41.9 Anxiety disorder, unspecified; F32.A Depression, unspecified; E03.9 Hypothyroidism, unspecified; Z79.899 Other long term (current) drug therapy
CPT/HCPCS: 43239; 84703; 88305; 88313; 88342; J7120; J2405

== ENCOUNTER → 2022-10-24 | Outpatient (CLI) | payer OTHER, SELFPAY ==
--- NOTE | 2022-10-24 16:10 | US_ITS ---
INDICATION: menorrhagia EXAMINATION: Ultrasound US Pelvis Non OB Complete With Transvaginal Imaging TECHNIQUE: Transabdominal and transvaginal pelvic ultrasound was performed. Grayscale, spectral waveform, and color flow Doppler evaluation of the adnexa. COMPARISON: LMP: 10/23/2022. FINDINGS: UTERUS: 8.8 cm length. Mildly heterogeneous. scar noted. ENDOMETRIUM: Not thickened. 0.3 cm maximal thickness. A few hyperechoic foci likely calcifications in the endometrium. Nabothian cyst in cervix. OVARIES: Right ovary: 2.4 x 1.4 x 1.9 cm. A few follicles, largest 1.1 x 0.7 x 0.8 cm. Left ovary: 5.6 x 3.1 x 5.0 cm. Complex cyst 4.9 x 2.5 x 4.7 cm with thick internal septation and/or nodule. Vascular flow demonstrated in both ovaries. No findings to suggest ovarian torsion. FREE FLUID: None. US/Pelvic w/ Transvaginal IMPRESSION: 1. No endometrial thickening. 2. Left ovarian 5.0 cm complex cyst, hemorrhagic cyst or versus cystic neoplasm. Short interval follow-up ultrasound recommended in 6-8 weeks to reevaluate. Electronically Signed: Elyse Murphy MD at 8:09 EDT ,
== END | disposition home or self-care (01) ==
LOC: US 16:06
PROVIDERS: PCP Family Medicine; Referring Provider Obstetrics & Gynecology; Visit Provider Obstetrics & Gynecology
DX: N92.0 Excessive and frequent menstruation with regular cycle (principal)
CPT/HCPCS: 76830; 76856

== ENCOUNTER → 2022-12-13 | Outpatient (CLI) | payer OTHER, SELFPAY ==
--- NOTE | 2022-12-13 14:36 | US_ITS ---
STUDY: ULTRASOUND OF THE FEMALE PELVIS - COMPLETE REASON FOR EXAM: Female, 37 years old. Pelvic pain. History of a pelvic cyst. LMP: December 09, 2022. TECHNIQUE: Transabdominal and Transvaginal TECHNICAL QUALITY: Adequate. COMPARISON: Comparison is made with prior study dated October 24, 2022. FINDINGS: The uterus is anteverted and is tilted to the right side of the pelvis. The uterus measures 7.5 cm x 5.4 cm x 4 cm. Normal uterine cervix. The endometrium measures 4 mm in thickness, and is hyperechoic. There is no demonstrated endometrial mass. Tiny calcifications are seen within the endometrium. There is no demonstrated myometrial mass. I.U.D. - The patient does not have an I.U.D. The right ovary is visualized. The right ovary measures 3 cm x 2.3 cm x 1.5 cm. There is no right ovarian cyst or ovarian mass. There is no visualized right adnexal mass or complex lesion. There is normal arterial and normal venous vascularity. The left ovary is visualized. The left ovary measures 3.1 cm x 2.1 cm x 1.7 cm. No cyst is seen at this time. Small follicles are seen. There is no left ovarian cyst or ovarian mass. There is no visualized left adnexal mass or complex lesion. There is normal arterial and normal venous vascularity. There is no fluid in the cul-de-sac. The pre void volume of the bladder was 368 ml. US/Pelvic w/ Transvaginal IMPRESSION: The previously seen left ovarian cyst is not seen at this time. Electronically Signed: Humble Patel MD at 9:43 EDT ,
== END | disposition home or self-care (01) ==
LOC: US 14:31
PROVIDERS: PCP Family Medicine; Referring Provider Obstetrics & Gynecology; Visit Provider Obstetrics & Gynecology
DX: N93.9 Abnormal uterine and vaginal bleeding, unspecified (principal); N83.209 Unspecified ovarian cyst, unspecified side
CPT/HCPCS: 76830; 76856

== ENCOUNTER 2023-09-14 09:58 | Day surgery (SDC) | payer OTHER, SELFPAY ==
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
[2023-09-14] VITALS (8 sets, daily range): BP systolic 103–121; BP diastolic 58–76; PULSE 89–105; RESP 16; TEMP 36.1–37.3; O2SAT 99–100; BMI 21.5
[2023-09-14] MEDS: Lactated Ringers 1,000 ML 15 ML IV (10:17)
[2023-09-14] MEDS: Lidocaine 1% /Epi 1:100 (20ml) 20 ML Vial (11:20)
--- NOTE | 2023-09-14 11:30 | SOF_PTH ---
PATIENT: JILLIAN GUADARRAMA [place] [facility] [place][id number] AGE/SX: 38/F ROOM: RE09/14/[address]: Dr. Arturo Lawrence MD : 1985 BED: DIS: 09/14/2023 SPEC #: [id number] RECD: 09/14/23 15:28 STATUS: JAMES SCOOTER #: [id number] JUAN CARLOS: 09/14/23 11:[address]: Arturo Lawrence DEPT: SURGICAL PATHOLOGY RECD BY: Florence Zuñiga ENTERED: 09/15/23 07:26 SP TYPE: SOFT TISS OTHR DR: Dr. Armand Nunez MD Tissues: Ear, NOS Procedures: Surgery Specimen Level IV HEADER OPERATION: Excision and repair post traumatic painful torn right earlobe PRE-OP DIAGNOSIS: Unspecified open wound of right ear, pain of right earlobe, history of external ear surgery TISSUE SUBMITTED: Right earlobe soft tissue MICROSCOPIC DIAGNOSIS Skin and soft tissue right ear, excision: Fibrosis and mild chronic perivascular inflammation. No evidence of malignancy. / 09/18/2023 MICROSCOPIC DESCRIPTION Slides are reviewed. GROSS DESCRIPTION Received in fixative is one container labeled with the patient's name and designated Right earlobe soft tissue. The specimen consists of two pieces of skin measuring 0.5 x 0.3 x 0.1cm and 0.6 x 0.4 x 0.2cm. The larger piece is bisected. The entire specimen is submitted in one cassette. / 09/15/2023 TC:3 CPT:22902
[2023-09-14] MEDS: Clindamycin 900 MG/50 ML BAG 75 MG IV (12:13)
--- NOTE | 2023-09-14 14:23 | PCM.OPRPT ---
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 Post-Operative Diagnosis: Same. Surgery/Procedure Performed:: Excision and repair recurrent painful post-traumatic torn right earlobe bifid contour deformity and creation piercing hole with turnover flap reconstruction. Description of Surgical Findings:: 38-year-old woman presents with a recurrence of a previous post-traumatic painful torn right ear lobe bifid contour deformity. The initial injury occurred 10 years ago when her then 5-year-old daughter grabbed her earring on her right earlobe and ripped it off and this led to this posttraumatic deformity. The deformity was corrected in an operation in January,. She had no problems with the healing of her right earlobe until recently when her earring got caught again on something at home. This led to the recurrence of her painful post-traumatic torn right ear lobe bifid contour deformity. She presents at this time for further evaluation and treatment. Surgeon: Arturo Lawrence MD store receiving specialist: None Type of Anesthesia: General Anesthesiologist: Sarthak Vazquez MD and Olena Pan CRNA Specimen's removed: Recurrent painful post-traumatic torn right earlobe bifid contour deformity to Pathology and Microbiology. Drains: None. Estimated Blood Loss (mL): 50. Description of Procedure: The patient was taken to the operating room and in the supine position, she was placed under general anesthesia. Her right face and neck areas were prepped and draped in the usual fashion. SCDs were placed for DVT prophylaxis. Perioperative antibiotics were given intravenously. Using 1% Xylocaine and epinephrine, a regional auricular block was administered around the right earlobe for postoperative pain control. I then excised the recurrent painful post-traumatic torn right earlobe bifid contour deformity. I excised the scar tissue anteriorly and created a proximal based skin flap. This flap will be a turnover flap to recreate the pierced opening at the time of this excision and repair. I then excised the scar tissue on the posterior aspect of the bifid deformity. Hemostasis obtained using electrocautery. The wound was irrigated with saline. I then rolled the skin flap as a turnover flap and sutured to itself to recreate the piercing defect. I then closed the earlobe defect in multiple layers using 5-0 Monocryl interrupted sutures for the deep dermis and subcutaneous tissue. The skin was approximated using 5-0 Monocryl simple interrupted and vertical mattress interrupted sutures. Some of the tissue that was removed at the time of the excision was sent to pathology for analysis to rule out carcinoma and to Microbiology for culture. A positive culture will necessitate antibiotic therapy. I then placed a hemostat through the piercing opening. I then placed an 8 Arabic red rubber catheter as a vessel loop through this opening and secured it to itself with 4-0 Nylon sutures to keep this pierced opening from closing during the initial postoperative healing process. Bactroban ointment was applied to the incision. The patient tolerated the procedure well. Good earlobe contour was noted. She was sent to PACU in satisfactory condition. She will be sent home on antibiotics and pain medicine. She will follow up in a week for a wound check and to discuss the pathology report and the microbiology report. The red rubber catheter vessel loop will be removed in 2 weeks. She is to keep her head elevated during the initial postoperative period. Grafts/Implants Used: None. Procedure Start Time: 12:33 Procedure Stop Time: 14:19 Complications None. Admit VTE Documentation VTE Present on Admission: No VTE Mechan Device Prophylaxis: SCD's VTE Pharm Prophylaxis ordered?: No Addendum Addendum: Surgery Charges CPT - 75342 ICD-10 - S01.301S, H92.01, Z98.890 68403 S01.301S, H92.01, Z98.890
--- NOTE | 2023-09-14 15:14 | DCINST_ITS ---
Discharge Instructions Diet Discharge Diet: No restrictions Activity May resume sexual activity in: 1-2 weeks Lifting Restrictions: 15 lb weight lifting restriction Additional Activity Instructions:: Keep head elevated to help prevent swelling Dressing / Incision Call your doctor if your incision/area has: Continuous Slow Oozing, Sudden Increased Bleeding, Increased Pain/ Swelling, Increased Redness and Foul Smelling Discharge Call your doctor if you observe: Fever of 101 or Higher, Coldness, Increased Pain, Inability to urinate, Inability to have a bowel movement, Shortness of breath, Chest pain, Calf discomfort and Uncontrolled pain Remove Dressing in: 2 days Cleanse incision/area with: Soap & Water Additional Dressing/Incision Instructions:: Keep red drain in place. May wash with soap and water and then apply antibiotic ointment to incision daily Follow Up Care Please Follow Up With: Arturo Lawrence MD When: One week. Call [phone] to schedule appointment Test Results: Test results from this visit will be discussed in further detail at your follow- up appointment, if applicable. Discharge Plan Admission Attending Provider: Arturo Lawrence Primary Care Provider: Armand Nunez Instructions Print Language: E[place] Discharge Orders/Prescriptions Prescriptions: New clindamycin HCl 300 mg capsule 300 mg PO TID 5 Days Qty: 15 0RF L.acidoph,saliva-B.bif-S.therm [Acidophilus Probiotic Blend] 175 mg capsule 1 cap PO DAILY 10 Days Qty: 10 0RF oxycodone-acetaminophen [Percocet] 5-325 mg tablet 1 tab PO 4X/DAY PRN PRN (Reason: pain (scale score 7-10)) 4 Days Qty: 16 0RF No Action bupropion HCl [Wellbutrin XL] 300 mg tablet extended release 24 hr 300 mg PO QAM levothyroxine [Synthroid] 50 mcg tablet 50 mcg PO DAILY multivitamin [Daily Multiple] 1 EACH tablet 1 tab PO DAILY alprazolam 1 mg tablet 1 mg PO TID PRN (Reason: Anxiety) Patient Comments: take 1 tablet by mouth three times a day if needed for anxiety for up to 90 DAYS rizatriptan 10 mg tablet,disintegrating 10 mg PO X1 PRN (Reason: Migraine Headache) Patient Comments: dissolve 1 tablet ON TONGUE AT ONSET OF HEADACHE may repeat in 2 hours if needed Qsymia 7.5-46 mg capsule, ER multiphase 24 hr 1 cap PO PRN PRN (Reason: MIGRAINES) Patient Comments: take 1 capsule by mouth once daily ondansetron 4 mg tablet,disintegrating 4 mg PO Q8H PRN (Reason: nausea and vomiting) Qty: 14 0RF sucralfate 100 mg/mL suspension 1 g PO BID PRN PRN (Reason: BILE REFLUX) Rx Instructions: TAKE 1 GRAM (10ML) TWICE A DAY NEEDED FOR EPIGASTRIC PAIN Referrals / Follow Up: Armand Nunez MD [Primary Care Provider] - Disposition Disposition (needs filled in before D/C Order can be placed): Home, Self Care
[2023-09-14] MEDS: oxyCODONE 5 MG Tablet PO (15:45)
== END 2023-09-14 15:59 | disposition home or self-care (01) ==
LOC: SDC 09:59 → AC 10:01
PROVIDERS: PCP Family Medicine; Referring Provider Surgery; Visit Provider Surgery
PROC: (CPT 14060; principal; 2023-09-14 11:15)
DX: L08.89 Other specified local infections of the skin and subcutaneous tissue (principal); B95.7 Other staphylococcus as the cause of diseases classified elsewhere; S01.311S Laceration without foreign body of right ear, sequela; X58.XXXS Exposure to other specified factors, sequela; E03.9 Hypothyroidism, unspecified; Z79.899 Other long term (current) drug therapy
CPT/HCPCS: 14060; 00300; 87070; 87075; 87176; 87186; 87205; 88305; J7120; A4216; C1758; J2405